=== PATIENT | male | born 1950 | race Caucasian/White ===

== ENCOUNTER → 2016-12-10 | Outpatient (CLI) | payer MEDICARE, BC ==
[~2016-12-10] MED LIST: AMOXICILLIN875 MG PO; ASPIRIN 81M81 MG/TA2 PO; CARDI-OMEGA1000 MG PO; CARDURA 8MG TAB8 MG PO; CINNAMON500 MG PO; GLUCOPHAGE500 MG/TAB PO; HYZAAR 12.5 MG-1 TAB PO; KLOR-CON M2020 MEQ PO; L-LYSINE500 M1 PO; LORTAB 5/500 501 TAB PO; MULTI VITAMINS1 TAB PO; MULTIPLE VITAMI1 CAP PO; PERCOCET 325 MG1 TA2 PO; SUPER BETA PROSTATE PO; SYNTHROID 0.0.025 MG PO; SYNTHROID0.1 MG/TAB PO; TYLENOL 500MG500 MG PO; VITAMIN B COMPL1 T16 PO; ZIAC 10/6.25M1 UDTAB PO; ZIAC 5/6.25MG T1 TAB PO; ZOCOR 10MG10 MG PO
== END ==
LOC: COL.VAS 13:58
DX: R01.1 Cardiac murmur, unspecified (principal)

== ENCOUNTER → 2017-12-05 | Outpatient (CLI) | payer MEDICARE, BC | LOC: COL.VAS 12-02 14:00 | DX: R09.89 Other specified symptoms and signs involving the circulatory and respiratory systems (principal) ==

== ENCOUNTER → 2018-06-15 | Outpatient (CLI) | payer MEDICARE, BC | LOC: COL.RAD 10:12 | DX: R22.1 Localized swelling, mass and lump, neck (principal) ==

== ENCOUNTER 2023-06-19 14:04 | Inpatient (IN) | payer MEDICARE, BC ==
[~2023-06-19] VITALS: Ht 180.3 cm; Wt 125.0 kg
[2023-06-19] VITALS (418 sets, daily range): BP systolic 113; BP diastolic 46; PULSE 63; TEMP 98.2; O2SAT 85–100
[~2023-06-19 14:04] MED LIST changes: +BYSTOLIC10 MG PO; +CEPHALEXIN500 M1 PO; +COZAAR100 MG PO; +GLUCOSAMIN 500 PO; +LIPITOR 10MG10 MG PO; +NORVASC 5MG5 MG/TAB PO; +REVATIO20 MG PO; +TIKOSYN0.25 MG PO; +ZYLOPRIM 300MG300 MG PO
[2023-06-19] MEDS ORDERED: NS 1,000 ML IV ONE (14:15)
[2023-06-19 14:18] LABS: BASO % 0.1 % (0.0-2.0); EOS % 0.3 % (0.0-4.0); GRAN # 7.6 K/mm3 (1.4-6.5); GRAN % 80.7 % (42.2-75.2); HEMOGLOBIN 10.6 g/dl (13.5-18.0); LYMPH # 0.9 K/mm3 (1.2-3.4); LYMPH % 9.9 % (20.0-51.0); MEAN CELL VOLUME 95 fl (80.0-100.0); MEAN CORPUSCULAR HEMOGLOBIN 33 pg (27-31); MEAN CORPUSCULAR HGB CONC 35 g/dl (33.0-37.0); MEAN PLATELET VOLUME 9.3 fl (7.4-10.4); MONO # 0.8 K/mm3 (0.1-0.6); MONO % 8.6 % (1.7-9.3); PLATELET COUNT 130 K/mm3 (130-400); RED BLOOD COUNT 3.23 M/mm3 (4.20-5.60); REDCELL DISTRIBUTION WIDTH-CV 12.7 % (11.5-14.5)
[2023-06-19 14:20] LABS: HEMATOCRIT 30.6 % (42.0-52.0)
[2023-06-19 14:30] LABS: INR 1.3 (0.8-3.0); PROTHROMBIN TIME 14.4 SECONDS (9.7-12.8)
[2023-06-19 14:42] LABS: ALANINE AMINOTRANSFERASE 14 U/L (0-55); ALBUMIN 3.2 gm/dL (3.4-4.8); ALKALINE PHOSPHATASE 45 U/L (40-150); ANION GAP 13 mmol/L (7-16); AST,SGOT 17 U/L (5-34); BILIRUBIN,TOTAL 1.3 mg/dL (0.2-1.2); BLOOD UREA NITROGEN 30 mg/dL (8-26); CALCIUM 9.6 mg/dL (8.4-10.2); CARBON DIOXIDE 23 mmol/L (23-31); CHLORIDE 103 mmol/L (98-107); CREATINE KINASE 354 U/L (30-200); CREATININE, serum 1.19 mg/dL (0.72-1.25); GLUCOSE 143 mg/dL (70-99); MAGNESIUM 1.9 mg/dL (1.6-2.6); POTASSIUM 3.9 mmol/L (3.5-4.5); SODIUM 139 mmol/L (136-145); TOTAL PROTEIN 6.5 gm/dL (6.2-8.1)
[2023-06-19] MEDS ORDERED: Amiodarone 450 MG in D5W Excel 250 ML IV SCH (15:00)
[2023-06-19] MEDS ORDERED: Morphine 4 MG/ML VIAL IV ONE (15:00)
[2023-06-19] MEDS ORDERED: ZOFRAN 4MG T4 MG/TAB PO (15:18)
[2023-06-19] MEDS ORDERED: ROXICODONE 55 MG/TAB PO (15:18)
[2023-06-19] MEDS ORDERED: CEPHALEXIN500 M1 PO (15:18)
[2023-06-19] MEDS ORDERED: ULTRAM 50MG TAB50 MG PO (15:18)
[2023-06-19] MEDS ORDERED: LIPITOR 10MG10 MG PO (15:19)
[2023-06-19 15:21] LABS: TROPONIN-I < 0.010 ng/mL (0.00-0.033)
[2023-06-19] MEDS ORDERED: oxyCODONE 5 MG TAB PO PRN (15:45)
[2023-06-19] MEDS ORDERED: Losartan 50 MG TAB PO SCH (15:45)
[2023-06-19] MEDS ORDERED: Ondansetron 4 MG TAB PO PRN (15:45)
[2023-06-19] MEDS ORDERED: metFORMIN 500 MG TAB PO SCH (17:00)
[2023-06-19] MEDS ORDERED: *Potassium Replacement Protocol MC SCH (17:15)
--- NOTE | 2023-06-19 19:10 | NUR ---
Received report from ALEX Briseno.
--- NOTE | 2023-06-19 20:12 | NUR ---
Patient resting quietly in chair. Vitals within normal limits. 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 PRN pain medication provided, see EMAR. No further reports of discomfort or needs. Call light within reach.
[2023-06-19] MEDS ORDERED: Atorvastatin 10 MG TAB PO SCH (21:00)
[2023-06-19] MEDS ORDERED: Cephalexin 500 MG CAP PO SCH (21:00)
[2023-06-20] VITALS (475 sets, daily range): BP systolic 97–130; BP diastolic 43–66; PULSE 60–63; TEMP 97.9–98.7; O2SAT 84–100
[2023-06-20] MEDS ORDERED: Amiodarone 450 MG in D5W Excel 250 ML IV SCH (05:04)
[2023-06-20 05:33] LABS: BASO % 0.1 % (0.0-2.0); EOS # 0.1 K/mm3 (0.0-0.7); EOS % 0.9 % (0.0-4.0); GRAN # 6.6 K/mm3 (1.4-6.5); GRAN % 77.2 % (42.2-75.2); LYMPH % 11.7 % (20.0-51.0); MEAN CELL VOLUME 94 fl (80.0-100.0); MEAN CORPUSCULAR HGB CONC 35 g/dl (33.0-37.0); MEAN PLATELET VOLUME 9.9 fl (7.4-10.4); MONO # 0.8 K/mm3 (0.1-0.6); MONO % 9.5 % (1.7-9.3); PLATELET COUNT 128 K/mm3 (130-400); RED BLOOD COUNT 2.84 M/mm3 (4.20-5.60); REDCELL DISTRIBUTION WIDTH-CV 12.7 % (11.5-14.5)
[2023-06-20 05:36] LABS: HEMATOCRIT 26.7 % (42.0-52.0); HEMOGLOBIN 9.4 g/dl (13.5-18.0); MEAN CORPUSCULAR HEMOGLOBIN 33 pg (27-31)
[2023-06-20 05:51] LABS: ALBUMIN 2.8 gm/dL (3.4-4.8); CALCIUM 9.2 mg/dL (8.4-10.2); CREATININE, serum 1.52 mg/dL (0.72-1.25); MAGNESIUM 1.9 mg/dL (1.6-2.6); PHOSPHOROUS 3.3 mg/dL (2.3-4.7); POTASSIUM 4.1 mmol/L (3.5-4.5)
--- NOTE | 2023-06-20 07:00 | NUR ---
Report received from ALEX Jacques. Pt sitting in recliner this AM; alert and oriented. Offers no complaints. Pt had no events overnight and no runs of SVT. Call light in reach.
[2023-06-20] MEDS ORDERED: Allopurinol 300 MG TAB PO SCH (09:00)
[2023-06-20] MEDS ORDERED: Docusate Sodium 100 MG CAP PO SCH (09:16)
[2023-06-20] MEDS ORDERED: Polyethylene Glycol 3350 17 GM PDS PO SCH (09:16)
[2023-06-20] MEDS ORDERED: Amiodarone 200 MG TAB PO SCH (10:30)
[2023-06-20 11:13] LABS: COLLECTION METHOD CLEAN CATCH
[2023-06-20 11:42] LABS: URINE APPEARANCE Clear (CLEAR/HAZY); URINE BLOOD 2+ (NEGATIVE); URINE COLOR Yellow (YELLOW); URINE GLUCOSE Negative (NEGATIVE); URINE KETONE TRACE (NEGATIVE); URINE NITRATE Negative (NEGATIVE); URINE PROTEIN(semi-quant) 1+ (NEGATIVE); URINE UROBILINOGEN 0.2 E.U/dL (0.2-1.0)
[2023-06-20 11:43] LABS: MUCOUS Present (NOT PRESENT); SQUAMOUS EPITHELIAL 0-2 /hpf (0-10); URINE BACTERIA Moderate /hpf (NONE SEEN)
[2023-06-20] MEDS ORDERED: EPA FISH OIL1 SGL PO (12:17)
--- NOTE | 2023-06-20 13:05 | NUR ---
Pt transfered to [place] [id number] via wheelchair. Pt met in room by ALEX Monreal and pt's Estefany. Pt has all belonings with him during transfer; clothes, cellphone, and coat. Telemetry placed on pt prior to transfer. Pt alert and oriented. Assisted to chair with walker x1 assist. Call light in reach.
--- NOTE | 2023-06-20 13:10 | NUR ---
Patient arrived to the unit by wheelchair from ICU. Transfered himself assisted x 1 using a walker to the chair in room. Alert and oriented x 4.
--- NOTE | 2023-06-20 16:08 | NUR ---
printing table worker met with patient and his significant other, Estefany Costa, P# [phone]. Patient has a daughter as well, Letty, P# [phone]. PCP is Dr. Taylor, preferred pharmacy is [facility]. No issues affording medications. Patient has a DPOA-HC on file, Estefany Costa. Patient has a cane and CPAP at home. Patient is currently renting a walker and crutches to use from his recent surgery. Patient reports being independent with ADLS. Patient would like to return home at time of discharge. Patient's significant other is able to transport him to and from any follow up appointments. Patient would like to return home at time of discharge. Discharge Plan: home
--- NOTE | 2023-06-20 20:00 | NUR ---
Assessment complete. A&Ox4. Denies nausea/shortness of breath. VS stable. Rating pain 3/10 on pain scale to right knee-described as intermittent ache-denies need for pain meds at this time. Aquacell to right knee-CDI. Noted to have +2 edema to bilateral lower extremity. INT to left FA/left AC flushes without difficulty. Currently on RA. TELE reporting paced. Plan of care discussed for this shift to include meds/pain control/calling for questions/concerns. Call light in reach. Will monitor.
[2023-06-21] VITALS (8 sets, daily range): BP systolic 122–145; BP diastolic 47–58; PULSE 60–97; TEMP 98.2–98.6
[2023-06-21] MEDS ORDERED: Acetaminophen 325 MG TAB PO PRN (05:15)
--- NOTE | 2023-06-21 05:41 | NUR ---
Patient had an uneventful night. VS stable. Tele reporting paced. Currently on RA. Left FA/Left AC INT flushes without difficulty. Aquacell to right knee CDI. Received oxycodone x1 and tylenol x1 for pain to knee. Denies current needs. Call light in reach. Will monitor.
--- NOTE | 2023-06-21 06:58 | NUR ---
Report given to ALEX Durant
[2023-06-21 07:52] LABS: BASO % 0.3 % (0.0-2.0); EOS # 0.1 K/mm3 (0.0-0.7); EOS % 1.8 % (0.0-4.0); GRAN # 5.8 K/mm3 (1.4-6.5); LYMPH # 1.2 K/mm3 (1.2-3.4); LYMPH % 14.8 % (20.0-51.0); MEAN CELL VOLUME 94 fl (80.0-100.0); MEAN CORPUSCULAR HGB CONC 34 g/dl (33.0-37.0); MONO # 0.8 K/mm3 (0.1-0.6); MONO % 9.7 % (1.7-9.3); PLATELET COUNT 157 K/mm3 (130-400); RED BLOOD COUNT 2.84 M/mm3 (4.20-5.60); REDCELL DISTRIBUTION WIDTH-CV 12.4 % (11.5-14.5)
[2023-06-21 08:09] LABS: ALBUMIN 2.8 gm/dL (3.4-4.8); CALCIUM 9.1 mg/dL (8.4-10.2); CREATININE, serum 1.16 mg/dL (0.72-1.25); MAGNESIUM 2.1 mg/dL (1.6-2.6); PHOSPHOROUS 3.4 mg/dL (2.3-4.7); POTASSIUM 3.9 mmol/L (3.5-4.5)
[2023-06-21 08:18] LABS: HEMATOCRIT 26.8 % (42.0-52.0); HEMOGLOBIN 9.1 g/dl (13.5-18.0); MEAN CORPUSCULAR HEMOGLOBIN 32 pg (27-31)
--- NOTE | 2023-06-21 09:15 | NUR ---
PATIENT SITTING UP IN RECLINER. ALERT AND ORIENTED. SHIFT ASSESSMENT COMPLETE. INCISION TO RIGHT KNEE COVERED WITH AQUACEL DRESSSING. CDI. PITTING +2 EDEMA TO BLE. PATIENT DENIES PAIN OR DISCOMFORT TO EXTREMETIES. TELEMETY IN PLACE. CONTACT PRECAUTIONS ENFORCED. WILL CONT TO MONITOR FOR CHANGES.
[2023-06-21] MEDS ORDERED: Potassium Bicarbonate/Citrate 20 MEQ Effervescent TAB PO ONE (09:30)
--- NOTE | 2023-06-21 18:13 | NUR ---
PATIENT RESTING IN BED. PATIENT IS ASLEEP, BUT EASY TO AROUSE. PATIENT CONTINUES TO FALL ASLEEP SHORTLY AFTER AWAKENING. AMS. NS RUNNING @ 100ML/HR. PATIENT HAS BEEN INCONINENT ALL SHIFT. ANTIFUNGAL POWDER APPLIED AFTER EACH INC EPISODE. NO BOWEL MOVEMENT THIS SHIFT. FALL PREC IN PLACE. BED ALARM ON.
--- NOTE | 2023-06-21 18:20 | NUR ---
PATIENT SITTING UP IN RECLINER. TYLENOL GIVEN PRN FOR KNEE PAIN. OVERALL, PATIENT'S PAIN HAS BEEN UNDER CONTROL THIS SHIFT. GIRLFRIEND JUST LEFT BEDSIDE. UNEVENTFUL DAY. CONTACT PREC IN PLACE. PATIENT DENIES NEEDS OR CONCERNS AT THIS TIME.
--- NOTE | 2023-06-21 20:30 | NUR ---
Initial shift assessment done- states having some pain to right knee 10/20,, will give Roxicodone as ordered, likes to just sit in the recliner- states he cant sleep in our beds, denies need for a HS snack, no other requests, tele on 60/paced, lower leg edema R>L, bilateral TERELL hose on.
[2023-06-22 03:16] VITALS: BP 136/49; PULSE 69; TEMP 98.3
[2023-06-22 07:31] VITALS: BP 138/46; PULSE 61; TEMP 97.8
[2023-06-22 07:43] LABS: BASO % 0.5 % (0.0-2.0); EOS # 0.2 K/mm3 (0.0-0.7); EOS % 2.9 % (0.0-4.0); GRAN # 4.1 K/mm3 (1.4-6.5); GRAN % 65.9 % (42.2-75.2); LYMPH # 1.2 K/mm3 (1.2-3.4); LYMPH % 19.5 % (20.0-51.0); MEAN CELL VOLUME 94 fl (80.0-100.0); MEAN CORPUSCULAR HGB CONC 35 g/dl (33.0-37.0); MEAN PLATELET VOLUME 9.5 fl (7.4-10.4); MONO # 0.7 K/mm3 (0.1-0.6); MONO % 10.6 % (1.7-9.3); PLATELET COUNT 193 K/mm3 (130-400); RED BLOOD COUNT 2.94 M/mm3 (4.20-5.60); REDCELL DISTRIBUTION WIDTH-CV 12.6 % (11.5-14.5)
[2023-06-22 07:49] LABS: HEMATOCRIT 27.5 % (42.0-52.0); HEMOGLOBIN 9.5 g/dl (13.5-18.0); MEAN CORPUSCULAR HEMOGLOBIN 32 pg (27-31)
[2023-06-22 08:01] LABS: ALBUMIN 2.8 gm/dL (3.4-4.8); CALCIUM 9.4 mg/dL (8.4-10.2); CREATININE, serum 1.08 mg/dL (0.72-1.25); MAGNESIUM 2.2 mg/dL (1.6-2.6); POTASSIUM 4.1 mmol/L (3.5-4.5)
--- NOTE | 2023-06-22 09:30 | NUR ---
Patient is in chair, alert and oriented x4, vss, denies any pain at this time, tele in place, paced. Assessment completed, meds given. No further needs at this time. Call light within reach.
--- NOTE | 2023-06-22 11:16 | NUR ---
repack room worker was notified patient is medically cleared for discharge. SW met with patient to discuss discharge planning. Patient reports he has established outpatient PT at [facility] on [address]. SW reviewed the important message from Medicare regarding patient's rights. Patient understood and had no concerns or questions. Patient signed form. Patient's significant other came into the room and asked if patient could receive a shower prior to discharge. SW met with nurse whom expressed with patient's unsteadiness they have been giving bed baths. SW met with OT whom expressed they would see if they could assist patient with shower. SW made a copy of the important message, placed original in the chart and provided a copy to the patient. SW also provided a Medicare.gov list of options for home health given nursing concerns about him showering. Patient and his significant other expressed they would like to remain with the outpatient PT. SW expressed if patient decides when he returns home he would like to receive home health he could speak with his PCP and they can refer him to his agency of choice. Patient understood and would like to continue with outpatient PT at this time. Discharge plan: Home with OP PT
[2023-06-22 11:49] VITALS: BP 139/51; PULSE 68; TEMP 97.7
[2023-06-22] MEDS ORDERED: ASPIRIN 81M81 MG/TA2 PO (13:45)
[2023-06-22] MEDS ORDERED: PACERONE400 MG PO (13:57)
--- NOTE | 2023-06-22 15:12 | NUR ---
Patient and family were provided with discharge information, all quewstions answered. IV access and telemetry were discontnued.
== END 2023-06-22 15:40 | disposition home or self-care (01) | DRG 310 ==
LOC: COL.ER 14:04 → ICU 15:32 → MEDICAL 06-20 13:07
PROVIDERS: Emergency Medicine; ADMIT Internal Medicine
DX: I47.20 Ventricular tachycardia, unspecified (principal); I27.20 Pulmonary hypertension, unspecified; G47.33 Obstructive sleep apnea (adult) (pediatric); I10 Essential (primary) hypertension; M10.9 Gout, unspecified; J44.9 Chronic obstructive pulmonary disease, unspecified; E11.9 Type 2 diabetes mellitus without complications; Z96.651 Presence of right artificial knee joint; E78.5 Hyperlipidemia, unspecified; H26.9 Unspecified cataract; E03.9 Hypothyroidism, unspecified; I48.91 Unspecified atrial fibrillation; Z87.442 Personal history of urinary calculi; Z99.89 Dependence on other enabling machines and devices; Z95.0 Presence of cardiac pacemaker; Z88.8 Allergy status to other drugs, medicaments and biological substances; Z87.891 Personal history of nicotine dependence; Z79.82 Long term (current) use of aspirin; Z79.899 Other long term (current) drug therapy; Z79.84 Long term (current) use of oral hypoglycemic drugs; Z79.890 Hormone replacement therapy; Z95.818 Presence of other cardiac implants and grafts; Z85.828 Personal history of other malignant neoplasm of skin; Z23 Encounter for immunization
CPT/HCPCS: J0282; J2270; J7030; J7060

== ENCOUNTER → 2023-07-21 | Outpatient (CLI) | payer MEDICARE, BC ==
[~2023-07-21] MED LIST changes: +EPA FISH OIL1 SGL PO; +PACERONE400 MG PO; +ROXICODONE 55 MG/TAB PO; +ULTRAM 50MG TAB50 MG PO; +ZOFRAN 4MG T4 MG/TAB PO
== END ==
LOC: COL.RAD 06:55
DX: G31.9 Degenerative disease of nervous system, unspecified (principal); R40.4 Transient alteration of awareness

== ENCOUNTER 2024-05-04 05:24 | Inpatient (IN) | payer MEDICARE, BC ==
[~2024-05-04] VITALS: Ht 180.3 cm; Wt 116.0 kg
[2024-05-15] VITALS (7 sets, daily range): BP systolic 128–167; BP diastolic 78–88; PULSE 59–63; TEMP 97.9–98.5
[2024-05-15] MEDS ORDERED: NS Flush 10 ML SYRINGE PRN ICA (08:45)
[2024-05-15] MEDS ORDERED: Sotalol 80 MG TAB PO BID PO SCH (09:00)
[2024-05-15] MEDS ORDERED: NS Flush 10 ML SYRINGE BID ICA SCH (09:00)
[2024-05-15] MEDS ORDERED: Docusate Sodium 100 MG CAP PO PRN (09:30)
[2024-05-15] MEDS ORDERED: Temazepam 15 MG CAP PO PRN (09:30)
[2024-05-15 09:49] LABS: BASO % 0.3 % (0.0-2.0); EOS # 0.2 K/mm3 (0.0-0.7); EOS % 3.5 % (0.0-4.0); GRAN # 3.1 K/mm3 (1.4-6.5); GRAN % 52.1 % (42.2-75.2); HEMATOCRIT 37.5 % (42.0-52.0); HEMOGLOBIN 13.4 g/dl (13.5-18.0); LYMPH % 33.2 % (20.0-51.0); MEAN CELL VOLUME 90 fl (80.0-100.0); MEAN CORPUSCULAR HEMOGLOBIN 32 pg (27-31); MEAN CORPUSCULAR HGB CONC 36 g/dl (33.0-37.0); MEAN PLATELET VOLUME 9.2 fl (7.4-10.4); MONO # 0.6 K/mm3 (0.1-0.6); MONO % 10.4 % (1.7-9.3); PLATELET COUNT 155 K/mm3 (130-400); RED BLOOD COUNT 4.17 M/mm3 (4.20-5.60); REDCELL DISTRIBUTION WIDTH-CV 12.5 % (11.5-14.5)
[2024-05-15 09:53] LABS: INR 1.2 (0.8-3.0); PROTHROMBIN TIME 13.6 SECONDS (9.7-12.8)
[2024-05-15] MEDS ORDERED: LOPRESSOR 550 MG/TAB PO (10:02)
[2024-05-15] MEDS ORDERED: ELIQUIS 5MG PO (10:06)
[2024-05-15] MEDS ORDERED: TRELEGY ELLIPT1 EACH IH (10:14)
[2024-05-15 10:15] LABS: ALBUMIN 3.9 g/dL (3.4-4.8); BILIRUBIN,TOTAL 0.7 mg/dL (0.2-1.2); CALCIUM 9.6 mg/dL (8.4-10.2); CREATININE, serum 0.99 mg/dL (0.72-1.25); MAGNESIUM 1.8 mg/dL (1.6-2.6)
[2024-05-15] MEDS ORDERED: hydrALAZINE 20 MG/ML 1 ML VIAL IV PRN (12:30)
[2024-05-15] MEDS ORDERED: Acetaminophen 325 MG TAB PO PRN (12:30)
--- NOTE | 2024-05-15 17:41 | NUR ---
Patient admitted this morning at approximately 0815 to room 316 for Sotalol initiation. Pt a/o x4. Denies pain or needs throughout day. Independent in room and ambulates in hallway. Tele reading A paced. VSS.
[2024-05-15] MEDS ORDERED: Atorvastatin 10 MG TAB PO SCH (21:00)
[2024-05-15] MEDS ORDERED: Apixaban 5 MG TABLET PO SCH (21:00)
[2024-05-16] VITALS (12 sets, daily range): BP systolic 122–155; BP diastolic 57–79; PULSE 60–64; TEMP 97.6–98.2
--- NOTE | 2024-05-16 00:41 | NUR ---
patient lying in bed, alert and oriented x4. denies chest pain/discomfort and shortness of breath. no remarkable skin findings at this time. nonpitting edema note to RLE. ambulates with steady gait. IV in RAC is patent, site CDI. pt has no further needs, questions or concerns at this time.
[2024-05-16 06:42] LABS: BASO % 0.5 % (0.0-2.0); EOS # 0.2 K/mm3 (0.0-0.7); EOS % 3.5 % (0.0-4.0); GRAN # 3.5 K/mm3 (1.4-6.5); GRAN % 55.2 % (42.2-75.2); HEMATOCRIT 37.1 % (42.0-52.0); LYMPH % 31.4 % (20.0-51.0); MEAN CELL VOLUME 92 fl (80.0-100.0); MEAN CORPUSCULAR HEMOGLOBIN 32 pg (27-31); MEAN CORPUSCULAR HGB CONC 35 g/dl (33.0-37.0); MEAN PLATELET VOLUME 9.3 fl (7.4-10.4); MONO # 0.6 K/mm3 (0.1-0.6); MONO % 8.9 % (1.7-9.3); PLATELET COUNT 163 K/mm3 (130-400); RED BLOOD COUNT 4.04 M/mm3 (4.20-5.60); REDCELL DISTRIBUTION WIDTH-CV 12.6 % (11.5-14.5)
--- NOTE | 2024-05-16 06:50 | NUR ---
bedside report received from night clerk nurse. pt currently in recliner sleeping. easily arousable to name. no needs at this time.
[2024-05-16 06:53] LABS: CALCIUM 9.3 mg/dL (8.4-10.2); CREATININE, serum 0.99 mg/dL (0.72-1.25); POTASSIUM 4.1 mEq/L (3.5-4.5)
[2024-05-16] MEDS ORDERED: Multivitamin TAB PO SCH (09:00)
[2024-05-16] MEDS ORDERED: Losartan 50 MG TAB PO SCH (09:00)
[2024-05-16] MEDS ORDERED: Patient's Own Medication Item IH SCH (09:00)
[2024-05-16] MEDS ORDERED: Allopurinol 300 MG TAB PO SCH (09:00)
--- NOTE | 2024-05-16 09:00 | NUR ---
PT A&OX4. VSS. SOTALOL DOSE GIVEN. PT EATING BREAKFAST AT THIS TIME. PT HAS NO C/O PAIN. PT ON CONTACT PRECAUTIONS FOR HX OF MRSA. NO FURTHER NEEDS AT THIS TIME.
--- NOTE | 2024-05-16 14:43 | NUR ---
PT IN RECLINER IN ROOM. PT HAS NO NEEDS AT THIS TIME. INDEPENDENT IN ROOM.
--- NOTE | 2024-05-16 15:02 | NUR ---
farmworker rice attended multidisciplinary team meeting to discuss patient's progress and discharge plan. Plan is for patient to return home. Everyone is in agreement with this plan. Discharge plan: Home
--- NOTE | 2024-05-16 15:11 | NUR ---
Rn Plastics met with patient to discuss discharge planning. Patient lives alone in [place] and sees Dr. Taylor for primary care. Patient gets medications from [facility] and has a home CPAP with him. Patient denies any other DME usage and stated he is independent with ADLS. Patient has DPOA-HC in EMR designating his friend, Estefany (ph#[phone]). Patient also has a daughter, Letty (ph#[phone]). Patient plans to return home when ready for discharge. Discharge Plan; Home
--- NOTE | 2024-05-16 18:58 | NUR ---
PATIENT SITTING UP IN BEDSIDE RECLINER WITH TV ON WITH NO FAMILY PRESENT WITH NO ACUTE DISTRESS NOTED. PATIENT ON ROOM AIR. INT TO RIGHT AC INTACT WITH NO COMPLICATIONS NTED. TELEMETRY INTACT. BEDSIDE SHIFT REPORT COMPLETED WITH KYLER AT THIS TIME. PATIENT DENIES ANY NEEDS. RECLINER LOCKED AND CALL LIGHT WITHIN REACH.
--- NOTE | 2024-05-16 20:47 | NUR ---
PATIENT SITTING UP IN BEDSIDE RECLINER WITH TV ON WITH NO FAMILY PRESENT WITH NO ACUTE DISTRESS NOTED. PATIENT ON ROOM AIR. INT TO RIGHT AC INTACT WITH NO COMPLICATIONS NOTED. TELEMETRY INTACT. ASSESSMENT AND MEDICATION ADMINISTRATION COMPLETED AT THIS TIME. PATIENT TOLERATED WELL. ALL NEEDS MET. RECLINER LOCKED AND CALL LIGHT WITHIN REACH.
[2024-05-17 00:05] VITALS: BP_SYST 135
[2024-05-17 01:12] VITALS: BP 135/66; PULSE 61; TEMP 98
[2024-05-17 04:00] VITALS: BP_SYST 124
[2024-05-17 04:42] VITALS: BP 124/65; PULSE 59; TEMP 98.3
[2024-05-17 06:57] LABS: BASO % 0.3 % (0.0-2.0); EOS # 0.2 K/mm3 (0.0-0.7); EOS % 3.2 % (0.0-4.0); GRAN # 3.5 K/mm3 (1.4-6.5); GRAN % 56.1 % (42.2-75.2); HEMOGLOBIN 13.1 g/dl (13.5-18.0); LYMPH # 1.9 K/mm3 (1.2-3.4); LYMPH % 29.9 % (20.0-51.0); MEAN CELL VOLUME 92 fl (80.0-100.0); MEAN CORPUSCULAR HEMOGLOBIN 33 pg (27-31); MEAN CORPUSCULAR HGB CONC 35 g/dl (33.0-37.0); MEAN PLATELET VOLUME 9.4 fl (7.4-10.4); MONO # 0.6 K/mm3 (0.1-0.6); PLATELET COUNT 153 K/mm3 (130-400); RED BLOOD COUNT 4.03 M/mm3 (4.20-5.60); REDCELL DISTRIBUTION WIDTH-CV 12.6 % (11.5-14.5)
[2024-05-17 07:16] LABS: CALCIUM 9.6 mg/dL (8.4-10.2)
[2024-05-17 08:13] VITALS: BP 123/58; PULSE 60; TEMP 97.8
[2024-05-17 09:42] VITALS: BP_SYST 123
[2024-05-17] MEDS ORDERED: BETAPACE 120MG120 MG PO (09:58)
--- NOTE | 2024-05-17 11:10 | NUR ---
PATIENT ALERT AND ORIENTED X4. VSS. PATIENT HERE FOR SOTALOL INITIATION. PATIENT DENIES ANY PAIN, SOB. PATIENT RESTING IN THE CHAIR, FINISHED WITH BREAKFAST. AM MEDS ADMINISTERED. NO FURTHER NEEDS. CALL LIGHT IN REACH.
--- NOTE | 2024-05-17 13:51 | NUR ---
DISCHARGE INSTRUCTIONS PROVIDED. PATIENT EDUCATION GIVEN. IV DC'D. FOLLOW UP APPOINTMENT DISCUSSED. MEDICATIONS REVIEWED. PATIENT DENIES ANY QUESTIONS OR CONCERNS. PATIENT ESCORTED OUT VIA WHEELCHAIR WITH BELONGINGS.
== END 2024-05-17 13:52 | disposition home or self-care (01) | DRG 310 ==
LOC: MEDICAL 05-15 05:23
PROVIDERS: ADMIT Internal Medicine Cardiovascular Disease
DX: I47.10 Supraventricular tachycardia, unspecified (principal); I48.0 Paroxysmal atrial fibrillation; Z79.01 Long term (current) use of anticoagulants; I47.20 Ventricular tachycardia, unspecified
CPT/HCPCS: J3475